=== PATIENT | female | born 1980 | race Caucasian/White ===

== ENCOUNTER 2023-07-03 06:07 | Day surgery (SDC) | payer BC, SELFPAY ==
[2023-07-03] VITALS (12 sets, daily range): BP systolic 101–119; BP diastolic 65–72; BMI 26.1
[2023-07-03] MEDS: TYLENOL 1000 MG PO (06:32)
[2023-07-03] MEDS: NORMOSOL-R 1000 IV (06:44)
[2023-07-03] MEDS: ROXICODONE 5 MG PO (11:05)
== END 2023-07-03 11:45 | disposition home or self-care (01) ==
LOC: SDS 06:07
PROVIDERS: ATTENDING PHYSICIAN Surgery
DX: K80.10 Calculus of gallbladder with chronic cholecystitis without obstruction (principal)
CPT/HCPCS: 47563; 88304; 74300; 76000

== ENCOUNTER → 2024-05-26 13:21 | Outpatient (REF) | payer BC, SELFPAY | LOC: RAD 13:21 | PROVIDERS: ATTENDING PHYSICIAN Nurse Practitioner Family; FAMILY PHYSICIAN Emergency Medicine | DX: M25.561 Pain in right knee (principal); M25.562 Pain in left knee | CPT/HCPCS: 73564 ==